=== PATIENT | female | born 1955 | race Two or more races ===

== ENCOUNTER 2021-07-01 16:32 | Emergency (ER) | payer SELFPAY ==
[~2021-07-01] VITALS: Ht 162.6 cm; Wt 84.4 kg
[2021-07-01 18:45] VITALS: BP 149/78
== END 2021-07-01 19:58 | disposition home or self-care (01) ==
LOC: ER 16:32
DX: S00.83XA Contusion of other part of head, initial encounter (principal); M54.2 Cervicalgia; R51.9 Headache, unspecified; Z88.0 Allergy status to penicillin; W19.XXXA Unspecified fall, initial encounter; Y93.89 Activity, other specified; Y92.89 Other specified places as the place of occurrence of the external cause; Y99.8 Other external cause status
CPT/HCPCS: 70450; 72125